=== PATIENT | male | born 1950 | race Caucasian/White ===

== ENCOUNTER 2019-03-21 09:56 | Emergency (ER) | payer MEDICARE ==
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
[2019-03-21 10:16] VITALS: BP 162/96
[2019-03-21] MEDS ORDERED: LISI-362 PO (10:21)
[2019-03-21] MEDS ORDERED: IBUPROFEN 600 MG TAB PO ONE (11:35)
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
== END 2019-03-21 11:57 | disposition home or self-care (01) ==
LOC: ER 10:00
DX: S16.1XXA Strain of muscle, fascia and tendon at neck level, initial encounter (principal)
CPT/HCPCS: 72125; 72128; 99284; A9270